=== PATIENT | female | born 1960 | race Caucasian/White ===

== ENCOUNTER 2017-03-25 14:05 | Emergency (ER) | payer BC ==
[2017-03-25] MEDS ORDERED: SUCRALFATE SUSP 1 GM/10 ML UDCUP PO ONE (15:19)
--- NOTE | 2017-03-25 15:19 | EKG REPORT ---
SEVERITY:- OTHERWISE NORMAL ECG - SINUS ARRHYTHMIA, RATE 64-96 : Confirmed by: Lianet Albarran 25-Mar-2017 15:18:35
--- NOTE | 2017-03-25 15:20 | ER Document Report ---
ED Medical Screen (RME) - General Chief Complaint: Chest Pain Stated Complaint: CHEST PAIN Time Seen by Provider: 03/25/17 15:19 Notes: Patient complains of severe chest pain that is worse with swallowing. She states she had similar problems in the past and told it was due to "esophageal spasms". She states last time she got nitroglycerin which did not help with pain. TRAVEL OUTSIDE OF THE [place] IN LAST 30 DAYS: No - Related Data Allergies/Adverse Reactions: amoxicillin trihydrate [From Augmentin] Allergy (Mild, Verified 03/25/17 14:08) Potassium Clavulanate * [From Augmentin] Allergy (Mild, Verified 03/25/17 14:08) Past Medical History - Social History Chew tobacco use (# tins/day): No Frequency of alcohol use: None Drug Abuse: None Renal/ Medical History: Denies: Hx Peritoneal Dialysis Past Surgical History: Reports: Hx Section - x2, Hx Cholecystectomy - Immunizations Hx Diphtheria, Pertussis, Tetanus Vaccination: Yes Physical Exam - Vital signs Vitals: Pulse Resp BP Pulse Ox 99 20 136/82 H 100 03/25/17 14:27 03/25/17 14:27 03/25/17 14:27 03/25/17 14:27 Course - Vital Signs Vital signs: Temp Pulse Resp BP Pulse Ox 99 20 136/82 H 100 03/25/17 14:27 03/25/17 14:27 03/25/17 14:27 03/25/17 14:27
[2017-03-25 15:46] LABS: ABSOLUTE EOSINOPHILS # (AUTO) 0.1 10^3/uL (0.0-0.6); ABSOLUTE LYMPHOCYTES (AUTO) 1.5 10^3/uL (0.5-4.7); ABSOLUTE MONOCYTES (AUTO) 0.3 10^3/uL (0.1-1.4); ABSOLUTE NEUT (AUTO) 4.6 10^3/uL (1.7-8.2); BASOPHILS % (AUTO) 0.7 % (0-2); EOSINOPHILS % (AUTO) 1.3 % (0-6); HEMATOCRIT 42.7 % (36.0-47.0); HEMOGLOBIN 14.8 g/dL (12.0-15.5); LYMPHOCYTES % (AUTO) 22.9 % (13-45); MEAN CORPUSCULAR HEMOGLOBIN 30.9 pg (27.0-33.4); MEAN CORPUSCULAR HGB CONC 34.7 g/dL (32.0-36.0); MEAN CORPUSCULAR VOLUME 89 fl (80-97); MONOCYTES % (AUTO) 4.1 % (3-13); PLATELET COUNT 300 10^3/uL (150-450); RED CELL DISTRIBUTION WIDTH 13.1 % (11.5-14.0); TOTAL CELLS COUNTED % (AUTO) 100 %; WHITE BLOOD COUNT 6.5 10^3/uL (4.0-10.5)
[2017-03-25 15:57] LABS: ALANINE AMINOTRANSFERASE 40 U/L (9-52); ALKALINE PHOSPHATASE 79 U/L (38-126); ANION GAP 13 (5-19); ASPARTATE AMINO TRANSFERASE 30 U/L (14-36); BILIRUBIN,DIRECT 0.1 mg/dL (0.0-0.4); BILIRUBIN,TOTAL 0.4 mg/dL (0.2-1.3); BLOOD UREA NITROGEN 18 mg/dL (7-20); CALCIUM 10.1 mg/dL (8.4-10.2); CARBON DIOXIDE 27 mmol/L (22-30); CHLORIDE 105 mmol/L (98-107); GLUCOSE 112 mg/dL (75-110); SODIUM 144.7 mmol/L (137-145); TOTAL PROTEIN 7.4 g/dL (6.3-8.2)
--- NOTE | 2017-03-25 16:10 | RADIOLOGY REPORT (SQ) ---
EXAM DESCRIPTION: CHEST PA/LAT COMPLETED DATE/TIME: 03/25/2017 3:57 pm REASON FOR STUDY: cp COMPARISON: 12/21/2011 EXAM PARAMETERS: NUMBER OF VIEWS: two views TECHNIQUE: Digital Frontal and Lateral radiographic views of the chest acquired. RADIATION DOSE: NA LIMITATIONS: none FINDINGS: LUNGS AND PLEURA: No opacities, masses or pneumothorax. No pleural effusion. MEDIASTINUM AND HILAR STRUCTURES: No masses or contour abnormalities. HEART AND VASCULAR STRUCTURES: Heart normal size. No evidence for failure. BONES: No acute findings. HARDWARE: None in the chest. OTHER: No other significant finding. IMPRESSION: NO SIGNIFICANT RADIOGRAPHIC FINDING IN THE CHEST. TECHNICAL DOCUMENTATION: JOB ID: [id number] [employer]- All Rights Reserved
--- NOTE | 2017-03-25 17:07 | ER Document Report ---
ED Cardiac - General Chief Complaint: Chest Pain Stated Complaint: CHEST PAIN Time Seen by Provider: 03/25/17 15:19 Mode of Arrival: Ambulatory Information source: Patient Notes: Patient states that in the past she has been diagnosed with esophageal spasms. She states that today's episode was exactly like previous esophageal spasm episodes she has had. She states she does not feel short of breath. Spasm is worse with swallowing and better when she does not swallow. It is sharp and constant. It radiates into her chest and back. She states that she has tried nitroglycerin in the past with no relief. No vomiting or diarrhea. TRAVEL OUTSIDE OF THE [place] IN LAST 30 DAYS: No - Related Data Allergies/Adverse Reactions: amoxicillin trihydrate [From Augmentin] Allergy (Mild, Verified 03/25/17 14:08) Potassium Clavulanate * [From Augmentin] Allergy (Mild, Verified 03/25/17 14:08) Past Medical History - General Information source: Patient - Social History Smoking Status: Never Smoker Chew tobacco use (# tins/day): No Frequency of alcohol use: None Drug Abuse: None Lives with: Family Family History: Reviewed & Not Pertinent Patient has suicidal ideation: No Patient has homicidal ideation: No Renal/ Medical History: Denies: Hx Peritoneal Dialysis Past Surgical History: Reports: Hx Section - x2, Hx Cholecystectomy - Immunizations Hx Diphtheria, Pertussis, Tetanus Vaccination: Yes Review of Systems - Review of Systems Constitutional: denies: Chills, Fever Cardiovascular: Chest pain. denies: Palpitations Respiratory: denies: Cough, Short of breath Gastrointestinal: denies: Abdominal pain, Diarrhea -: Yes All other systems reviewed and negative Physical Exam - Vital signs Vitals: Pulse Resp BP Pulse Ox 99 20 136/82 H 100 03/25/17 14:27 03/25/17 14:27 03/25/17 14:27 03/25/17 14:27 Interpretation: Normal - General General appearance: Appears well, Alert - HEENT Head: Normocephalic, Atraumatic Eyes: Normal Pupils: PERRL - Respiratory Respiratory status: No respiratory distress Chest status: Nontender Breath sounds: Normal Chest palpation: Normal - Cardiovascular Rhythm: Regular Heart sounds: Normal auscultation Murmur: No - Abdominal Inspection: Normal Distension: No distension Bowel sounds: Normal Tenderness: Nontender Organomegaly: No organomegaly - Back Back: Normal, Nontender - Extremities General upper extremity: Normal inspection, Nontender, Normal color, Normal ROM , Normal temperature General lower extremity: Normal inspection, Nontender, Normal color, Normal ROM , Normal temperature, Normal weight bearing. No: Dale's sign - Neurological Neuro grossly intact: Yes Cognition: Normal Orientation: AAOx4 [place] Coma Scale Eye Opening: Spontaneous [place] Coma Scale Verbal: Oriented [place] Coma Scale Motor: Obeys Commands [place] Coma Scale Total: 15 Speech: Normal Motor strength normal: LUE, RUE, LLE, RLE Sensory: Normal - Psychological Associated symptoms: Normal affect, Normal mood - Skin Skin Temperature: Warm Skin Moisture: Dry Skin Color: Normal Course - Vital Signs Vital signs: Temp Pulse Resp BP Pulse Ox 99 20 136/82 H 100 03/25/17 14:27 03/25/17 14:27 03/25/17 14:27 03/25/17 14:27 - Laboratory Result Diagrams: 03/25/17 15:29 03/25/17 15:29 Laboratory results interpreted by me: 03/25/17 15:29 Glucose 112 H - EKG Interpretation by [place] EKG shows normal: Sinus rhythm Rate: Normal Rhythm: NSR [place]/QRS: No: Right axis deviation, Left axis deviation Discharge - Discharge Clinical Impression: Chest pain at rest Condition: Stable Disposition: HOME, SELF-CARE Instructions: Chest Pain of Unclear Cause ([facility]), Esophageal Spasm ([facility]) Additional Instructions: Call your family physician as soon as possible to arrange follow-up Prescriptions: Sucralfate [Carafate Susp 1 Gm/10 Ml Udcup] 1 gm PO QID 14 Days udc Forms: Return to Work
[2017-03-25 17:23] VITALS: BP 130/88
== END 2017-03-25 17:23 | disposition home or self-care (01) ==
LOC: ER 14:05
DX: R07.9 Chest pain, unspecified (principal); K22.4 Dyskinesia of esophagus; M54.9 Dorsalgia, unspecified
CPT/HCPCS: 36415; 71046; 80053; 84484; 85025; 93005; 93010; 99285

== ENCOUNTER → 2018-09-10 | Outpatient (CLI) | payer OTHER ==
--- NOTE | 2018-09-10 19:53 | XCELERA REPORT ---
[address] [address] Lower Extremity Arterial Evaluation Name: PAL REYES Age: 57 yrs Gender: Female : 1960 Patient Status: Outpatient Patient Location: Study Date: 09/10/2018 03:14 PM Procedure: A color flow and duplex scan of the lower extremity arteries was performed bilaterally with velocity and waveform anaylsis. Ankle brachial indicies performed. Reason For Study: ANKLE ULCER Ordering Physician: KAYLA LYNN Performed By: Sam Garrido Measurements and Calculations Right Left PARTS EXPEDITER PSV 181.6 173.8 cm/sec Prox PFA PSV -84.4 -128.1cm/sec Prox SFA PSV 139.1 170.9 cm/sec Mid SFA PSV -125.7 -158.7cm/sec Dist SFA PSV -110.6 -120.8cm/sec Prox Pop A PSV 101.2 89.3 cm/sec Dist PARAM PSV 78.6 65.9 cm/sec Dist PEDIATRICIAN PSV 155.0 134.8 cm/sec Jeremi Pedis PSV 38.4 39.0 cm/sec Right Side Arterial Evaluation Normal velocity and triphasic waveforms noted from the Common Femoral artery to the infrageniculate vessels . Biphasic with low, reversed flow velocity in the Dorsalis Pedis artery. Ankle Brachial index 1.03. Left Side Arterial Evaluation Normal velocity and triphasic waveforms noted from the Common Femoral artery to the infrageniculate vessels . Biphasic with low, reversed flow velocity in the Dorsalis Pedis artery. Ankle Brachial index 1.14. Interpretation Summary Mild hemodynamically significant lesions in the bilateral lower extremities, on duplex imaging, at rest. Duplex imaging normal,except for Dorsalis Pedis findings, consistent with collateral filling. AUBREE's are normal suggesting no significant arterial compromise. : KAYLA LYNN > Kayla Lynn
== END ==
LOC: SP 14:57
PROVIDERS: ATTEND Surgery
DX: L97.309 Non-pressure chronic ulcer of unspecified ankle with unspecified severity (principal)
CPT/HCPCS: 93922; 93925